=== PATIENT | male | born 2000 | race Hispanic/Latino ===

== ENCOUNTER 2018-07-11 05:11 | Inpatient (IN) | payer MEDICAID ==
--- NOTE | 2018-07-11 05:32 | C.PDOC ---
Chief Complaint (Nursing): Psychiatric Evaluation Past Medical History Vital Signs: Last Vital Signs Temp 98.1 F 07/11/18 05:14 Pulse 75 07/11/18 05:14 Resp 14 07/11/18 05:14 BP 120/79 07/11/18 05:14 Pulse Ox 100 07/11/18 05:14 - Social History Hx Alcohol Use: No Hx Substance Use: No - Immunization History Hx Tetanus Toxoid Vaccination: No Hx Influenza Vaccination: No Hx Pneumococcal Vaccination: No ED Course And Treatment O2 Sat by Pulse Oximetry: 100 Disposition - Disposition
--- NOTE | 2018-07-11 06:25 | C.PDOC ---
History Of Present Illness 17 year old male presents as a transfer from [facility] for inpatient psych. Time Seen by Provider: 07/11/18 05:50 Chief Complaint (Nursing): Psychiatric Evaluation History Per: Patient, Other ([facility]) History/Exam Limitations: no limitations Onset/Duration Of Symptoms: Days Current Symptoms Are (Timing): Still Present Recent travel outside of the [place]: No Past Medical History Reviewed: Historical Data, Nursing Documentation, Vital Signs Vital Signs: Last Vital Signs Temp 98.5 F 07/11/18 06:22 Pulse 84 07/11/18 06:22 Resp 20 07/11/18 06:22 BP 114/77 07/11/18 06:22 Pulse Ox 100 07/11/18 05:14 Family History: States: Unknown Family Hx - Social History Hx Alcohol Use: No Hx Substance Use: No - Immunization History Hx Tetanus Toxoid Vaccination: No Hx Influenza Vaccination: No Hx Pneumococcal Vaccination: No Review Of Systems Constitutional: Negative for: Fever, Chills Cardiovascular: Negative for: Chest Pain, Palpitations Respiratory: Negative for: Cough, Shortness of Breath Gastrointestinal: Negative for: Nausea, Vomiting Neurological: Negative for: Weakness, Numbness Physical Exam - Physical Exam Appears: Non-toxic, No Acute Distress Skin: Normal Color, Warm, Dry Head: Atraumatic, Normacephalic Eye(s): bilateral: Normal Inspection Oral Mucosa: Moist Chest: Symmetrical, No Tenderness Cardiovascular: Rhythm Regular Respiratory: Normal Breath Sounds, No Rales, No Rhonchi, No Wheezing Gastrointestinal/Abdominal: Soft, No Tenderness Neurological/Psych: Oriented x3, Normal Speech ED Course And Treatment O2 Sat by Pulse Oximetry: 100 Disposition Doctor Will See Patient In The: Hospital Counseled Patient/Family Regarding: Studies Performed, Diagnosis - Disposition Disposition: HOSPITALIZED Disposition Time: 06:00 Condition: GOOD - Clinical Impression Clinical Impression: Depression - Scribe Statement The provider has reviewed the documentation as recorded by the Scriboneal Mccray All medical record entries made by the Anetaiboneal were at my direction and personally dictated by me. I have reviewed the chart and agree that the record accurately reflects my personal performance of the history, physical exam, medical decision making, and the department course for this patient. I have also personally directed, reviewed, and agree with the discharge instructions and disposition.
--- NOTE | 2018-07-11 06:55 | PCM.BM ---
<Santosh Polk - Last Filed: 07/11/18 06:52> Treatment Plan Problems - Problems identified on initial assessmt DEPRESSION Date Initiated: 07/11/18 Time Initiated: 06:15 Assessment reference: NA Status: Active SUICIDAL IDEATION Date Initiated: 07/11/18 Time Initiated: 06:15 Assessment reference: NA Status: Active Treatment assets and liabiliti Patient Assests: adapts well, cooperative, self-reliant, ADL independent, physically healthy, good support system Patient Liabilities: other (NON COMPLIANT OF FOLLOW-UP TREATMENT/ NON COMPLIANT OF MEDICATION) - Milieu Protocol Maintain good personal hygiene: daily Encourage regular showers, daily Remind patient to perform daily oral care, daily Assist patient to perform ADL's Maintain personal safety: every shift Educate patient to report safety concerns to staff, every shift Monitor environment for contraband/sharps Medication safety: Monitor for expected outcome, potential side effects: every shift, Assess barriers to learning: every shift, Assess readiness for medication education: every shift <Shamika Henderson - Last Filed: 07/11/18 14:06> Family Contact Family involvement: Family/SO is involved Family contact: Patient declines to allow family contact at present - Goals for Treatment Patient goals for treatment: "I want to go home." Discharge/Continuing Care - Education Needs Education Needs: Patient Medication, Patient Coping Skills - Discharge Discharge Criteria: Tolerates medication w/o severe side effects, Reduction of target symptoms Discharge to:: Home, With Family - Treatment Team Participation Discussed with Family/SO: No Was Patient/Family/SO present at Treatment Team Meeting: Yes
--- NOTE | 2018-07-11 10:21 | PCM.PSYCH ---
Initial Psychiatric Evaluation - Initial Psychiatric Evaluation Type of Admission: Voluntary Legal Status: Capacity Chief Complaint (in patient's own words): I was feeling very depressed and suicidal.' History of Present Illness and Precipitating Events: This is a 17 years old male, who lives with his mother, came to the hospital with depressed mood and suicidal ideation. Patient reports history of few inpatient psychiatric hospitalizations. He was [facility] from a [facility] [place] almost 2 years ago. Patient reports that he was following up with a psychiatrist in the past. However he stopped taking the medications a year ago. Patient reports that he is feeling increasingly depressed for a couple of months. Yesterday he became increasingly depressed and developed suicidal ideation with a plan to overdose on all of his mother's and stepfather's pills. He informed his mother, who got concerned and escorted him to the hospital to get help. He reports depressed mood, at times feelings of hopelessness, helplessness and worthlessness. He also reports poor sleep and poor appetite. He reports at times, he feels irritable and agitated. He also reports that at times he feels that his head is running like 100 mph and he cannot focus and concentrate. H also reports at times hearing his voice telling him to do different things. He also reports paranoia sometimes but denies any visual hallucinations. He denies any drinking or any substance abuse. Past medical history None reported Current Medications: Active Medications Generic Name Dose Route Start Last Admin Trade Name Freq PRN Reason Stop Dose Admin Influenza Virus Vaccine 60 mcg 07/12/18 10:00 Fluzone Quad [id number] IM 07/12/18 10:01 .ONCE ONE Pneumococcal Polyvalent Vaccine 0.5 ml 07/12/18 10:30 Pneumovax 23 Vaccine IM 07/12/18 10:31 .ONCE ONE Past Psychiatric History - Past Psychiatric History Previous Treatment History: Inpatient Pertinent Medical Hx (Current Medical&Sleep Prob, Allergies): Allergies Allergy/AdvReac Type Severity Reaction Status Date / Time No Known Allergies Allergy Unverified 07/11/18 05:16 No Known Home Med 07/11/18 Review of Systems - Review of Systems All systems: reviewed and no additional remarkable complaints except - Psychiatric Psychiatric: Anxiety, Irritability, Mood Swings, Suicidal Ideation Mental Status Examination - Personal Presentation Personal Presentation: Looks stated age - Affect Affect: Constricted, Depressed - Motor Activity Motor Activity: Calm - Reliability in Providing Information Reliability in Providing Information: Fair - Speech Speech: Organized - Mood Mood: Depressed, Anxious - Formal Thought Process Formal Thought Process: Hallucinations, Delusions, Paranoia, Flight of ideas - Hallucinations/Delusions Hallucinations: Auditory - Obsessions/Compulsions Obsessions: No Compulsions: No - Cognitive Functions Orientation: Person, Place, Situation, Time Sensorium: Alert Attention/Concentration: Attentive Abstract Thinking: [place] Estimate of Intelligence: Below average Judgement: Imparied, as evidence by: Poor judgement, Imparied, as evidence by: Lack of insight into illness - Risk Risk: Suicidal, Diminished functioning - Strength & Assets Inventory Strength & Assets Inventory: Family support, Cooperative DSM 5 DX - DSM 5 DSM 5 Diagnosis: Bipolar disorder mixed severe with psychotic features - Recommended/Plan of Treatment Treatment Recommendations and Plan of Treatment: Bipolar disorder mixed severe with psychotic features CBT Psychoeducation nursing supportive therapy and group therapy [place] 300 mg p.o. 3 times daily Risperdal 0.5 mg p.o. twice daily Trazodone 50 mg p.o. nightly Hydroxyzine 25 mg p.o. every 6 hours as needed
[2018-07-12] MEDS ORDERED: Influenza Vaccine 60 MCG/0.5 ML SYR (3 yr & up) IM ONE (10:00)
[2018-07-12] MEDS ORDERED: Influenza Vaccine 60 mcg/0.5 mL SYR (4YR UP) IM ONE (10:15)
[2018-07-12] MEDS ORDERED: Pneumococcal 23-Valent Vaccine IM ONE (10:30)
--- NOTE | 2018-07-12 14:43 | PCM.PYCHPN ---
Psychiatric Progress Note - Psychiatric Progress Note Patient seen today, length of contact: 15 min Patient Chief Complaint: I was feeling very depressed and suicidal.' Problems Identified/Issues Discussed: Patient was seen and evaluated, chart reviewed and discussed the staff. Patient still reports depressed mood, feelings of hopelessness and helplessness. He remained isolated and confined to his room. He also reports at times racing thoughts, irritability and agitation. However he denies any auditory hallucinations and paranoia. He is taking medication but denies any side effects He needs to stay longer for the further stabilization of the symptoms Supportive therapy was given Medication Change: Yes Medical Record Reviewed: Yes Mental Status Examination - Cognitive Function Orientation: Person, Place, Situation, Time Memory: Intact Attention: WNL Concentration: Poor Association: WNL Fund of Knowledge: Poor - Mood Mood: Depressed, Anxious - Affect Affect: Constricted, Depressed - Speech Speech: Soft - Formal Thought Process Formal Thought Process: Hallucinations, Paranoia, Flight of ideas - Suicidal Ideation Suicidal Ideation: No - Homicidal Ideation Homicidal Ideation: No Goal/Treatment Plan - Goal/Treatment Plan Need for Continued Stay: Severe depression anxiety, Severe functional impairment Progress Toward Problem(s) and Goals/Treatment Plan: Bipolar disorder mixed severe with psychotic features CBT Psychoeducation nursing supportive therapy and group therapy [place] 300 mg p.o. 3 times daily Risperdal 0.5 mg p.o. twice daily Trazodone 50 mg p.o. nightly Hydroxyzine 25 mg p.o. every 6 hours as needed
[2018-07-14] MEDS: Lithium Carbonate 150 MG CAP PO SCH ×2 (09:35→17:08)
--- NOTE | 2018-07-14 22:45 | PCM.PYCHPN ---
Psychiatric Progress Note - Psychiatric Progress Note Patient seen today, length of contact: 15 min Patient Chief Complaint: I am doing good. Problems Identified/Issues Discussed: Patient seen, chart reviewed, case discussed with the staff. Issues related to illness and treatment were discussed with the patient and staff. Reported compliant with treatment with no adverse effect. Calm and cooperative. Reported feeling much better. Awake, alert and oriented x 3. Mood reported as okay. Affect appropriate. Memory intact. Aftercare discussed with the patient. Denied any delusions, auditory or visual hallucinations, suicidal ideations or homicidal ideations at the time of evaluation. Staff reported no behavioral disturbance. Medical Problems: None reported Diagnostic Results: Reviewed DSM 5 Symptoms Update: Improving with treatment. Medication Change: No Medical Record Reviewed: Yes Mental Status Examination - Cognitive Function Orientation: Person, Place, Situation, Time Memory: Intact Attention: WNL Concentration: WNL Association: WN Fund of Knowledge: [facility] Decription of patient's judgement and insights: Fair - Mood Mood: Neutral - Affect Affect: Other (Appropriate) - Speech Speech: Soft - Formal Thought Process Formal Thought Process: No Impairment Psychotic Thoughts and Behaviors: None - Suicidal Ideation Suicidal Ideation: No - Homicidal Ideation Homicidal Ideation: No Goal/Treatment Plan - Goal/Treatment Plan Need for Continued Stay: Remain at risks for inpatient hospitalization, Discharge may exacerbated symptoms, Severe functional impairment Progress Toward Problem(s) and Goals/Treatment Plan: Patient education. Supportive therapy. Continue treatment as before. Estimated Date of D/C: 07/16/18 - Smoking Cessation Smoking Cessation Initiated: No
[2018-07-15] MEDS: Lithium Carbonate 150 MG CAP PO SCH ×2 (09:11→17:11)
[2018-07-16 06:40] VITALS: BP 115/75; PULSE 70; RESP 20; TEMP 99; O2SAT 99
[2018-07-16] MEDS: Lithium Carbonate 150 MG CAP PO SCH (09:30)
--- NOTE | 2018-07-16 10:17 | PCM.PYCHDC ---
Mental Status Examination - Mental Status Examination Orientation: Person, Place, Situation, Time Memory: Intact Mood: Neutral Affect: Constricted Speech: Soft Attention: WNL Concentration: WNL Association: WNL Fund of Knowledge: WNL Formal Thought Process: No Impairment Description of patient's judgement and insight: good, fair Psychotic Thoughts and Behaviors: denies any AVH Suicidal Ideation: No Current Homicidal Ideation?: No Discharge Summary - Discharge Note Reason for Hospitalization: This is a 17 years old male, who lives with his mother, came to the hospital with depressed mood and suicidal ideation. Patient reports history of few inpatient psychiatric hospitalizations. He was last discharged from a [facility] [place] almost 2 years ago. Patient reports that he was following up with a psychiatrist in the past. However he stopped taking the medications a year ago. Patient reports that he is feeling increasingly depressed for a couple of months. Yesterday he became increasingly depressed and developed suicidal ideation with a plan to overdose on all of his mother's and stepfather's pills. He informed his mother, who got concerned and escorted him to the hospital to get help. He reports depressed mood, at times feelings of hopelessness, helplessness and worthlessness. He also reports poor sleep and poor appetite. He reports at times, he feels irritable and agitated. He also reports that at times he feels that his head is running like 100 mph and he cannot focus and concentrate. H also reports at times hearing his voice telling him to do different things. He also reports paranoia sometimes but denies any visual hallucinations. He denies any drinking or any substance abuse. Past medical history None reported Consultations:: List each consultation separately and include: 1. Reason for request. 2. Findings. 3. Follow-up Summary of Hospital Course include:: 1. Description of specific treatment plan utilized for patients during their course of treatmen. 2. Summarize the time- course for resolution of acute symptoms and/or regressed behaviors. 3. Describe issues identified and worked on during hospitalization. 4. Describe medication utilized. 5. Describe medical problems identified and treated. 6. Reassessment of suicide risk Summary of Hospital Course: This is a 17 years old male, who lives with his mother, came to the hospital with depressed mood and suicidal ideation. Patient reports history of few inpatient psychiatric hospitalizations. He was last discharged from a [facility] [place] almost 2 years ago. Patient reports that he was following up with a psychiatrist in the past. However he stopped taking the medications a year ago. Patient reports that he is feeling increasingly depressed for a couple of months. Yesterday he became increasingly depressed and developed suicidal ideation with a plan to overdose on all of his mother's and stepfather's pills. He informed his mother, who got concerned and escorted him to the hospital to get help. He reports depressed mood, at times feelings of hopelessness, helplessness and worthlessness. He also reports poor sleep and poor appetite. He reports at times, he feels irritable and agitated. He also reports that at times he feels that his head is running like 100 mph and he cannot focus and concentrate. H also reports at times hearing his voice telling him to do different things. He also reports paranoia sometimes but denies any visual hallucinations. He denies any drinking or any substance abuse. Past medical history None reported - Final Diagnosis (DSM 5) Condition upon Discharge: GOOD Disposition: HOME/ ROUTINE Follow-up Treatment Plan: Bipolar disorder mixed severe with psychotic features CBT Psychoeducation nursing supportive therapy and group therapy [place] 300 mg p.o. 3 times daily Risperdal 0.5 mg p.o. twice daily Trazodone 50 mg p.o. nightly Hydroxyzine 25 mg p.o. every 6 hours as needed Prescriptions/Medication Reconciliation: [place] Carbonate [[place] Carbonate 150MG] 150 mg PO BID #60 cap [place] Carbonate [[place] Carbonate 300MG] 300 mg PO BID #60 cap risperiDONE [RisperDAL Tab] 0.5 mg PO HS #30 tab
== END 2018-07-16 10:45 | disposition home or self-care (01) | DRG 430 ==
LOC: C.ER 05:11 → C.5E 05:50
PROC: GZHZZZZ Group Psychotherapy (ICD-10-PCS; principal; 2018-07-11)
PROC: GZ58ZZZ Individual Psychotherapy, Cognitive-Behavioral (ICD-10-PCS; 2018-07-11)
PROC: GZ56ZZZ Individual Psychotherapy, Supportive (ICD-10-PCS; 2018-07-11)
DX: F31.64 Bipolar disorder, current episode mixed, severe, with psychotic features (principal); R45.851 Suicidal ideations